=== PATIENT | female | born 1965 | race Two or more races ===

== ENCOUNTER → 2020-07-10 | Outpatient (CLI) | payer OTHER ==
[2020-07-10 16:58] LABS: BASO # 0.1 x10^3/uL (0.0-0.2); BASO % 1 % (0-3); EOS # 0.1 x10^3/uL (0.0-0.7); EOS % 1 % (0-3); HEMATOCRIT 44.4 % (36.0-47.0); HEMOGLOBIN 15.5 g/dL (12.0-15.5); LYMPH # 2.8 x10^3/uL (1.0-4.8); LYMPH % 31 % (24-48); MEAN CORPUSCULAR HEMOGLOBIN 31 pg (25-35); MEAN CORPUSCULAR HGB CONC 35 g/dL (31-37); MEAN CORPUSCULAR VOLUME 89 fL (79-100); MONO # 0.6 x10^3/uL (0.0-1.1); MONO % 7 % (0-9); NEUT # 5.4 x10^3/uL (1.8-7.7); NEUT % 60 % (31-73); PLATELET COUNT 271 x10^3/uL (140-400); RED BLOOD COUNT 4.99 x10^6/uL (3.50-5.40); RED CELL DISTRIBUTION WIDTH 13.3 % (11.5-14.5); WHITE BLOOD COUNT 8.9 x10^3/uL (4.0-11.0)
[2020-07-10 17:24] LABS: FREE T4 1.14 ng/dL (0.76-1.46); THYROID STIM HORMONE (TSH) 1.752 uIU/mL (0.358-3.74)
== END ==
LOC: LAB 16:26
PROVIDERS: ATTEND Obstetrics & Gynecology
DX: Z01.411 Encounter for gynecological examination (general) (routine) with abnormal findings (principal); N95.0 Postmenopausal bleeding; N95.1 Menopausal and female climacteric states
CPT/HCPCS: 82670; 82681; 83001; 84439; 84443; 85025

== ENCOUNTER → 2020-07-17 | Outpatient (CLI) | payer OTHER ==
--- NOTE | 2020-07-18 19:29 | RAD ---
DATE: 07/17/2020 EXAM: MAMMO CARLITA SCREENING BILATERAL HISTORY: Screening COMPARISON: 05/18/2017, 10/18/2018 This study was interpreted with the benefit of Computerized Aided Detection (CAD). Breast Density: SCATTERED The breast parenchyma shows scattered fibroglandular densities. Breast parenchyma level B. FINDINGS: No mass, suspicious calcification, or architectural distortion in either breast. IMPRESSION: No evidence of malignancy. BI-RADS CATEGORY: 1 NEGATIVE RECOMMENDED FOLLOW-UP: 12M 12 MONTH FOLLOW-UP PQRS compliance statement: Patient information was entered into a reminder system with a target due date for the next mammogram. Mammography is a sensitive method for finding small breast cancers, but it does not detect them all and is not a substitute for careful clinical examination. A negative mammogram does not negate a clinically suspicious finding and should not result in delay in biopsying a clinically suspicious abnormality. "Our facility is accredited by the [employer] Mammography Program."
== END ==
LOC: MAMMO 09:04
PROVIDERS: ATTEND Obstetrics & Gynecology
DX: Z12.31 Encounter for screening mammogram for malignant neoplasm of breast (principal)
CPT/HCPCS: 77063; 77067

== ENCOUNTER → 2020-08-22 | Outpatient (CLI) | payer OTHER ==
[2020-08-22 08:55] LABS: BASO # 0.1 x10^3/uL (0.0-0.2); BASO % 1 % (0-3); EOS # 0.1 x10^3/uL (0.0-0.7); EOS % 1 % (0-3); HEMATOCRIT 43.9 % (36.0-47.0); HEMOGLOBIN 15.3 g/dL (12.0-15.5); LYMPH # 1.9 x10^3/uL (1.0-4.8); LYMPH % 25 % (24-48); MEAN CORPUSCULAR HEMOGLOBIN 31 pg (25-35); MEAN CORPUSCULAR HGB CONC 35 g/dL (31-37); MEAN CORPUSCULAR VOLUME 90 fL (79-100); MONO # 0.5 x10^3/uL (0.0-1.1); MONO % 7 % (0-9); NEUT # 5.3 x10^3/uL (1.8-7.7); NEUT % 67 % (31-73); PLATELET COUNT 265 x10^3/uL (140-400); RED CELL DISTRIBUTION WIDTH 12.7 % (11.5-14.5); WHITE BLOOD COUNT 7.9 x10^3/uL (4.0-11.0)
[2020-08-22 10:20] LABS: ALBUMIN 4.2 g/dL (3.4-5.0); ALBUMIN/GLOBULIN RATIO 1.2 (1.0-1.7); CALCIUM 9.2 mg/dL (8.5-10.1); CREATININE 0.8 mg/dL (0.6-1.0); GFR 74.5; POTASSIUM 4.3 mmol/L (3.5-5.1); TOTAL BILIRUBIN 0.6 mg/dL (0.2-1.0); TOTAL PROTEIN 7.7 g/dL (6.4-8.2)
[2020-08-22 10:22] LABS: CHOLESTEROL/HDL RATIO 2.7
== END ==
LOC: LAB 08:30
PROVIDERS: ATTEND Family Medicine
DX: E11.9 Type 2 diabetes mellitus without complications (principal); I10 Essential (primary) hypertension; E78.00 Pure hypercholesterolemia, unspecified
CPT/HCPCS: 36415; 80053; 80061; 82043; 85025

== ENCOUNTER 2020-09-29 08:56 | Emergency (ER) | payer OTHER ==
[~2020-09-29] VITALS: Ht 157.5 cm; Wt 79.5 kg
[2020-09-29] MEDS ORDERED: NAPR-514 PO (09:56)
--- NOTE | 2020-09-29 09:57 | ED.ADGEN ---
Past Medical History Past Medical History: Diabetes-Type II, Diverticulitis, High Cholesterol, Hypertension, Other Additional Past Medical Histor: shingles Past Surgical History: Appendectomy, Cholecystectomy, Tubal ligation Smoking Status: Never Smoker Alcohol Use: None Drug Use: None General Adult EDM: Chief Complaint: UPPER EXTREMITY PAIN HPI: HPI: Patient is a 54 year old female who presents emergency department with complaints of pain in her left upper arm that radiates down the surface of her left arm. She denies any injury or fall. Patient states that her fourth fifth and the medial portion of her third digits feel tingly and numb. She reports that the symptoms increase with pain. She denies any decreased range of motion, swelling, erythema, or warmth. Patient states she recently completed physical therapy after left shoulder injury at work. She currently rates discomfort a 4 out of 10 on the pain scale, she denies any alleviating factors. Patient states she is dominantly right-handed. Review of Systems: Review of Systems: Complete ROS is negative unless otherwise noted in HPI. Allergies: Allergies: Allergies Coded Allergies Type Severity Reaction Last Updated Verified No Known Drug Allergies 05/22/13 No Physical Exam: PE: See Above Constitutional: Well developed, well nourished, no acute distress, non-toxic appearance. [] HENT: Normocephalic, atraumatic, bilateral external ears normal, nose normal. [] Eyes: PERRLA, EOMI, conjunctiva normal, no discharge. [] Neck: Normal range of motion, no stridor. [] Cardiovascular:Heart rate regular rhythm Lungs & Thorax: Respirations even and unlabored, no retractions, no respiratory distress Skin: Warm, dry, no erythema, no rash. [] Extremities: LUE: No bony tenderness or deformity, no crepitus, no erythema/warm th, sensation intact, cap refill less than 2 seconds, no cyanosis, ROM intact, no edema. [] Neurologic: Alert and oriented X 3, no focal deficits noted. [] Psychologic: Affect normal, judgement normal, mood normal. [] Current Patient Data: Vital Signs: Vital Signs Date Time Temp Pulse Resp B/P (MAP) Pulse Ox O2 Delivery O2 Flow Rate FiO2 09/29/20 09:08 98.3 78 18 113/63 (80) 98 98.3 EKG: EK-sinus rhythm, leftward axis, otherwise normal, rate 72, no STEMI [] Heart Score: C/O Chest Pain: No Radiology/Procedures: Radiology/Procedures: [] Course & Med Decision Making: Course & Med Decision Making Pertinent Labs and Imaging studies reviewed. (See chart for details) [] Dragon Disclaimer: Jaquion Disclaimer: This electronic medical record was generated, in whole or in part, using a voice recognition dictation system. Departure Departure Impression: Primary Impression: Cubital tunnel syndrome on left Additional Impression: Left tennis elbow Disposition: HOME / SELF CARE / HOMELESS Condition: STABLE Referrals: KEITH MURPHY MD (PCP) Patient Instructions: Cubital Tunnel Syndrome-SportsMed Additional Instructions: Fill prescription(s) and use as directed. Recommend application of ice, elevation, and rest of affected extremity. Purchase an [id number] elbow support for comfort. Follow-up with Dr. Duran if symptoms persist, return to the ER if your symptoms worsen. Scripts Naproxen (NAPROXEN) 500 Mg Tablet 1 TAB PO BID PRN for PAIN for 10 Days, #20 TAB 0 Refills Prov: JIM GAY APRN 09/29/20 Problem Qualifiers JIM GAY APRN Sep 29, 2020 09:57
[2020-09-29 10:12] VITALS: BP 146/71
--- NOTE | 2020-09-29 15:22 | EKG ---
[facility] [address] [place] [address] Test Date: 2020-09-29 Test Time: 09:44:56 Pat Name: WILLIAN AVITIA Department: Room: Gender: F [employer] Operation: : 1965 Requested By: JIM GAY Order Number: [id number] Reading MD: Measurements Intervals Gerlaw Rate: 72 P: 31 NC: 126 QRS: -5 QRSD: 74 T: 14 QT: 400 QTc: 440 Interpretive Statements SINUS RHYTHM LEFTWARD AXIS R-S TRANSITION ZONE IN V LEADS DISPLACED TO THE RIGHT OTHERWISE NORMAL ECG RI6.01 No previous ECG available for comparison
== END 2020-09-29 10:16 | disposition home or self-care (01) ==
LOC: ER 08:56
DX: G56.22 Lesion of ulnar nerve, left upper limb (principal); M77.12 Lateral epicondylitis, left elbow; E11.9 Type 2 diabetes mellitus without complications; E78.00 Pure hypercholesterolemia, unspecified; I10 Essential (primary) hypertension
CPT/HCPCS: 93005; 99283

== ENCOUNTER → 2020-10-13 | Outpatient (CLI) | payer OTHER ==
[2020-09-29 10:12] VITALS: BP 146/71
[~2020-10-13] MED LIST: NAPR-514 PO
--- NOTE | 2020-10-13 11:38 | RAD ---
EXAM: MRI LEFT SHOULDER WITHOUT CONTRAST INDICATION: Incomplete tear left rotator cuff, bicipital tendinitis COMPARISON: Left shoulder radiograph 08/04/2020 TECHNIQUE: Multiplanar, multisequence imaging of the left shoulder without contrast. FINDINGS: ROTATOR CUFF: Mild supraspinatus and infraspinatus tendinopathy. No rotator cuff tear. Subscapularis and teres minor tendons are intact. Muscles are normal signal and bulk. LABRUM: There is a superior labral tear. BICEPS TENDON: Mild intra-articular biceps tendinopathy. The extra-articular biceps tendon is normal in appearance. ACROMIOCLAVICULAR JOINT: Minimal acromioclavicular degenerative joint disease. Type II acromion. GLENOHUMERAL JOINT: Cartilage is intact. Marrow signal is normal. Alignment is normal.. OTHER: No joint effusion. Mild subacromial-subdeltoid bursitis. IMPRESSION: 1. Supraspinatus and infraspinatus tendinopathy. No rotator cuff tear. 2. Superior labral tear. 3. Mild intra-articular biceps tendinopathy. 4. Mild subacromial-subdeltoid bursitis. Electronically signed by: Tiffanie James MD (10/13/2020 11:35 AM) [id number]
== END ==
LOC: MRI 10:09
PROVIDERS: ATTEND Physician Assistant
DX: S43.432A Superior glenoid labrum lesion of left shoulder, initial encounter (principal); M19.012 Primary osteoarthritis, left shoulder; M75.52 Bursitis of left shoulder; M75.82 Other shoulder lesions, left shoulder; M75.22 Bicipital tendinitis, left shoulder; M75.112 Incomplete rotator cuff tear or rupture of left shoulder, not specified as traumatic; M25.812 Other specified joint disorders, left shoulder; X58.XXXA Exposure to other specified factors, initial encounter; Y93.89 Activity, other specified; Y92.89 Other specified places as the place of occurrence of the external cause; Y99.8 Other external cause status
CPT/HCPCS: 73221

== ENCOUNTER → 2021-02-05 | Outpatient (CLI) | payer OTHER ==
[2021-02-05 10:04] LABS: BASO # 0.1 x10^3/uL (0.0-0.2); BASO % 1 % (0-3); EOS # 0.1 x10^3/uL (0.0-0.7); EOS % 2 % (0-3); HEMATOCRIT 45.4 % (36.0-47.0); HEMOGLOBIN 15.7 g/dL (12.0-15.5); LYMPH # 2.3 x10^3/uL (1.0-4.8); LYMPH % 31 % (24-48); MEAN CORPUSCULAR HEMOGLOBIN 31 pg (25-35); MEAN CORPUSCULAR HGB CONC 35 g/dL (31-37); MEAN CORPUSCULAR VOLUME 90 fL (79-100); MONO # 0.5 x10^3/uL (0.0-1.1); MONO % 7 % (0-9); NEUT # 4.4 x10^3/uL (1.8-7.7); NEUT % 60 % (31-73); PLATELET COUNT 254 x10^3/uL (140-400); RED BLOOD COUNT 5.04 x10^6/uL (3.50-5.40); RED CELL DISTRIBUTION WIDTH 12.3 % (11.5-14.5); WHITE BLOOD COUNT 7.3 x10^3/uL (4.0-11.0)
[2021-02-05 10:31] LABS: CALCIUM 8.9 mg/dL (8.5-10.1); CREATININE 0.6 mg/dL (0.6-1.0); GFR 103.4; POTASSIUM 3.6 mmol/L (3.5-5.1)
[2021-02-06 23:08] LABS: HEMOGLOBIN A1C 9.7 % (4.8-5.6)
== END ==
LOC: LAB 09:27
PROVIDERS: ATTEND Family Medicine
DX: I10 Essential (primary) hypertension (principal); E11.9 Type 2 diabetes mellitus without complications; E78.00 Pure hypercholesterolemia, unspecified
CPT/HCPCS: 36415; 80048; 82465; 83036; 85025

== ENCOUNTER → 2021-04-02 | Outpatient (CLI) | payer OTHER ==
[2021-04-02 11:06] LABS: CHOLESTEROL/HDL RATIO 2.9
[2021-04-03 01:09] LABS: HEMOGLOBIN A1C 8.1 % (4.8-5.6)
== END ==
LOC: LAB 10:17
PROVIDERS: ATTEND Family Medicine
DX: E11.9 Type 2 diabetes mellitus without complications (principal); E78.00 Pure hypercholesterolemia, unspecified
CPT/HCPCS: 36415; 80061; 83036

== ENCOUNTER → 2021-06-22 | Outpatient (CLI) | payer OTHER ==
[2021-06-22 11:10] LABS: BASO % 0 % (0-3); EOS # 0.1 x10^3/uL (0.0-0.7); EOS % 1 % (0-3); HEMOGLOBIN 14.9 g/dL (12.0-15.5); LYMPH # 2.3 x10^3/uL (1.0-4.8); LYMPH % 27 % (24-48); MEAN CORPUSCULAR HEMOGLOBIN 31 pg (25-35); MEAN CORPUSCULAR HGB CONC 35 g/dL (31-37); MEAN CORPUSCULAR VOLUME 88 fL (79-100); MONO # 0.5 x10^3/uL (0.0-1.1); MONO % 6 % (0-9); NEUT # 5.5 x10^3/uL (1.8-7.7); NEUT % 66 % (31-73); PLATELET COUNT 251 x10^3/uL (140-400); WHITE BLOOD COUNT 8.4 x10^3/uL (4.0-11.0)
[2021-06-22 11:19] LABS: ALBUMIN 4.2 g/dL (3.4-5.0); ALBUMIN/GLOBULIN RATIO 0.9 (1.0-1.7); CALCIUM 9.6 mg/dL (8.5-10.1); CREATININE 0.9 mg/dL (0.6-1.0); GFR 64.8; POTASSIUM 3.3 mmol/L (3.5-5.1); TOTAL BILIRUBIN 0.5 mg/dL (0.2-1.0); TOTAL PROTEIN 8.8 g/dL (6.4-8.2)
[2021-06-22 11:23] LABS: CHOLESTEROL/HDL RATIO 2.5
[2021-06-22 11:30] LABS: BILIRUBIN,URINE NEGATIVE (NEG); CLARITY,URINE CLEAR; COLOR,URINE YELLOW; PROTEIN,URINE NEGATIVE (NEG-TRACE)
[2021-06-22 11:31] LABS: NITRITE,URINE NEGATIVE (NEG)
[2021-06-22 11:32] LABS: BACTERIA,URINE 0 /HPF (0-FEW); RBC,URINE 0 /HPF (0-2); WBC,URINE OCC /HPF (0-4)
[2021-06-23 01:08] LABS: HEMOGLOBIN A1C 6.2 % (4.8-5.6)
== END ==
LOC: LAB 10:28
PROVIDERS: ATTEND Family Medicine
DX: I10 Essential (primary) hypertension (principal); E11.9 Type 2 diabetes mellitus without complications; E78.00 Pure hypercholesterolemia, unspecified; R10.9 Unspecified abdominal pain
CPT/HCPCS: 36415; 80053; 80061; 81001; 83036; 85025

== ENCOUNTER → 2021-08-10 | Outpatient (CLI) | payer OTHER ==
--- NOTE | 2021-08-11 12:21 | RAD ---
Bilateral digital screening 2-D and 3-D (digital breast tomosynthesis) mammogram: Reason for examination: Routine screening. Comparison: Mammograms from 10/18/2018, July 17, 2020. Interpretation was made with the benefit of CAD. FINDINGS: Breast density: Category B. There are scattered areas of fibroglandular density. No suspicious breast mass, malignant appearing calcifications, or architectural distortion is seen. IMPRESSION: No evidence of malignancy. Assessment: BI-RADS 1. Negative. Recommendation: Routine screening mammograms. The patient will receive a letter with the results in the mail. Patient information will be entered i nto the mammography reminder system with a target recall date for the next mammogram. A reminder najma er will be generated. Electronically signed by: Giovana Orozco MD (08/10/2021 5:33 PM) [id number]
== END ==
LOC: MAMMO 15:23
PROVIDERS: ATTEND Family Medicine
DX: Z12.31 Encounter for screening mammogram for malignant neoplasm of breast (principal)
CPT/HCPCS: 77067